=== PATIENT | female | born 1980 | race Caucasian/White ===

== ENCOUNTER 2018-03-08 18:55 | Emergency (ER) | payer OTHER ==
[~2018-03-08] VITALS: Ht 170.2 cm; Wt 70.3 kg
[2018-03-08 19:25] LABS: ABSOLUTE BASOPHIL COUNT 0 /CUMM (0.0-0.2); ABSOLUTE EOSINOPHIL COUNT 0.3 /CUMM (0.0-0.7); ABSOLUTE GRANULOCYTE CT 7.9 /CUMM (1.4-6.5); ABSOLUTE LYMPH COUNT 2.3 /CUMM (1.2-3.4); ABSOLUTE MONOCYTE COUNT 0.6 /CUMM (0.10-0.60); BASOPHIL % 0.4 % (0.0-2.0); EOSINOPHIL % 2.4 % (0-5); GRANULOCYTE % 70.7 % (42.2-75.2); HEMATOCRIT 46.6 % (37-47); MEAN CORPUSCULAR HGB 30.5 PG (27.0-31.0); MEAN CORPUSCULAR HGB CONC 33.6 G/DL (33.0-37.0); MEAN CORPUSCULAR VOLUME 90.8 FL (81.0-99.0); MEAN PLATELET VOLUME 10.2 FL (7.4-10.4); PLATELET COUNT 221 /CUMM (130-400); RBC DISTRIBUTION WIDTH 13.6 % (11.5-14.5); RED BLOOD CELL CT 5.14 /CUMM (4.20-5.40); WHITE BLOOD CELL COUNT 11.1 /CUMM (4.8-10.8)
--- NOTE | 2018-03-08 20:42 | ED HEADACHE COMPLAINT ---
History of Present Illness General Chief Complaint: General Adult Stated Complaint: HIGH BLOOD PRESSURE Source: patient, old records Exam Limitations: no limitations Vital Signs & Intake/Output Vital Signs & Intake/Output Vital Signs Date Time Temp Pulse Resp B/P B/P Pulse O2 O2 Flow FiO2 Mean Ox Delivery Rate 03/08 2146 84 149/82 03/08 2047 85 150/86 03/08 2047 85 150/86 03/08 1858 97.4 118 18 195/93 96 Allergies Coded Allergies: MDX - Adhesive (ADHESIVE) (RASH 02/09/13) Reconcile Medications Labetalol HCl 100 MG TABLET 1 TAB PO BID HTN Triage Note: 37 Y/O FEMALE C/O HYPERTENSION. STATES SHE RECENTLY HAD HER CONTROL INCREASED DUE TO IRREGULAR PERIODS AND HAS BEEN HAVING INCREASED BLOOD PRESSURES SINCE. CHECKED B/P AT HOME TODAY AND WAS FOUND TO BE 200'S SYSTOLIC (REPORTED BY PT). C/O INTERMITTENT HEADACHES. DENIES C/P. DENIES OTHER COMPLAINTS. IN TRIAGE TAKEN FOR EKG. Triage Nurses Notes Reviewed? yes Onset: Afternoon Duration: hour(s):, constant, continues in ED Timing: recent history Quality/Severity: moderate, throbbing No Modifying Factors: none LMP (ages 10-50): unknown : No Patient currently breastfeeds: No HPI: Several hours prior to admission patient complains of headache she took her blood pressure and it was noted to be elevated. She reports having issues with elevated blood pressure since of of her second child and use of increasing doses of oral contraceptives for irregular menstrual bleeding. She denies fever chills nausea vomiting diarrhea abdominal pain chest pain shortness of breath dysuria rash bleeding change in motor sensory function change in bowel bladder habit. Past History Travel History Traveled to [place] past 21 day No Medical History Any Pertinent Medical History? see below for history Neurological: NONE EENT: NONE Cardiovascular: hypertension (after ) Respiratory: NONE Gastrointestinal: NONE Hepatic: NONE Renal: NONE Musculoskeletal: NONE Psychiatric: NONE Endocrine: NONE Blood Disorders: NONE Cancer(s): NONE HIGHWAY MAINTAINER/Reproductive: NONE Tetanus Vaccine: 02/11/13 Surgical History Surgical History: non-contributory Psychosocial History What is your primary language Japanese Tobacco Use: Never used Family History Hx Contributory? No Review of Systems Review of Systems Constitutional: Reports: no symptoms. Eyes: Reports: no symptoms. Ears, Nose, Throat, Mouth: Reports: no symptoms. Respiratory: Reports: no symptoms. Cardiovascular: Reports: no symptoms. Gastrointestinal/Abdominal: Reports: no symptoms. Genitourinary: Reports: no symptoms. Musculoskeletal: Reports: no symptoms. Skin: Reports: no symptoms. Neurological/Psychological: Reports: see HPI, headache. Hematologic/Endocrine: Reports: no symptoms. Endocrine: Reports: no symptoms. Immunologic/Allergic: Reports: no symptoms. All Other Systems: Reviewed and Negative Physical Exam Physical Exam General Appearance: well developed/nourished, alert, awake, anxious, mild distress Head: atraumatic, normal appearance Eyes: Bilateral: normal appearance, PERRL, EOMI. Ears, Nose, Throat: normal pharynx, normal ENT inspection, hearing grossly normal Neck: normal inspection, supple, full range of motion, trachea midline, no midline tenderness Respiratory: normal breath sounds, chest non-tender, no respiratory distress, quiet respiration, lungs clear Cardiovascular: regular rate/rhythm, normal peripheral pulses, norml femoral pulses equa Gastrointestinal: normal bowel sounds, soft, non-tender, no organomegaly Back: normal inspection, normal range of motion, no vertebral tenderness Extremities: normal inspection, normal capillary refill, normal range of motion, no edema Psychiatric: awake, alert, oriented x 3 Cranial Nerves: normal hearing, normal speech, PERRL Coordination/Gait: normal finger to nose, normal gait Motor/Sensory: no motor/sensory deficits Reflexes: 2+: bicep (R), bicep (L). Skin: intact, normal color, warm/dry Lymphatic: no anterior cervical marga Core Measures Sepsis Present: No Sepsis Focused Exam Completed? No Progress Differential Diagnosis: cluster MADRIGAL, intracranial Hem., subarach. Hem., tension MADRIGAL Plan of Care: Orders Procedure Date/time Status Add-on Test (ER Only) 03/08 2006 Active TSH REFLEX 03/08 1906 Complete MAGNESIUM 03/08 1906 Complete HUMAN BETA HCG SCREEN 03/08 1906 Complete URINALYSIS 03/08 1901 Complete TROPONIN LEVEL 03/08 1901 Complete COMPREHENSIVE METABOLIC PANEL 03/08 1901 Complete CBC WITHOUT DIFFERENTIAL 03/08 1901 Complete EKG 03/08 1900 Active Current Medications Sig/Patrice Start time Last Medication Dose Stop Time Status Admin Labetalol HCl 100 MG ONCE ONE 03/08 2200 UNVr (Trandate) 03/08 2201 Laboratory Tests 03/08/18 1940: Urine Color Cancelled, Urine Clarity Cancelled, Urine pH Cancelled, Ur Specific [place] Cancelled, Urine Protein Cancelled, Urine Ketones Cancelled, Urine Nitrite Cancelled, Urine Bilirubin Cancelled, Urine Urobilinogen Cancelled, Ur Leukocyte Esterase Cancelled, Ur Microscopic Cancelled, Urine Hemoglobin Cancelled, Urine Glucose Cancelled 03/08/181939: Urinalysis LIGHT H, Urine Color YEL, Urine Clarity HAZY H, Urine pH 6.5, Ur Specific [place] 1.015, Urine Protein TRACE H, Urine Ketones NEG, Urine Nitrite NEG, Urine Bilirubin NEG, Urine Urobilinogen 0.2, Ur Leukocyte Esterase NEG, Ur Microscopic SEDIMENT EXAMINED, Urine RBC RARE, Ur Epithelial Cells MOD H, Urine Hemoglobin TRACE-INTACT, Urine Glucose NEG 03/08/181905: Anion Gap 16, Estimated GFR > 60, BUN/Creatinine Ratio 24.3, Glucose 98, Calcium 9.5, Magnesium 1.9, Total Bilirubin 0.7, AST 21, ALT 20, Alkaline Phosphatase 66 , Troponin I < 0.01, Total Protein 7.8, Albumin 5.0, Globulin 2.8, Albumin/ Globulin Ratio 1.8, TSH &T3 &Free T4 Intrp 3.710, Total Beta HCG NEGATIVE, CBC w Diff NO MAN DIFF REQ, RBC 5.14, MCV 90.8, MCH 30.5, MCHC 33.6, RDW 13.6, MPV 10.2, Gran % 70.7, Lymphocytes % 20.7, Monocytes % 5.8, Eosinophils % 2.4, Basophils % 0.4, Absolute Granulocytes 7.9 H, Absolute Lymphocytes 2.3, Absolute Monocytes 0.6, Absolute Eosinophils 0.3, Absolute Basophils 0 Diagnostic Imaging: Viewed by Me: CT Scan. Discussed w/RAD: CT Scan. Radiology Impression: 1. There are no acute bleeds or territorial infarcts. No masses are demonstrated. 2. The visualized mastoid air cells and paranasal sinuses are well-aerated. Initial ED EKG: normal axis, normal intervals, normal p-waves, normal QRS complex, rhythm (sinus tachycardia), no ST T wave changes Rhythm Strip: normal sinus rhythm Departure Departure Time of Disposition: 2147 Disposition: HOME OR SELF CARE Condition: Stable Clinical Impression Primary Impression: Hypertension Referrals: Mel Clemons DO (PCP/Family) Departure Forms: Customer Survey General Discharge Information Prescriptions: Current Visit Scripts Labetalol HCl 1 TAB PO BID #60 TAB Critical Care Note Critical Care Note Critical Care Time: 30-74 min (35)
--- NOTE | 2018-03-08 21:21 | CT SCAN REPORT ---
EXAMINATION: CT HEAD WITHOUT CONTRAST CLINICAL INFORMATION: Hypertension and headache. Assess for intracranial hemorrhage. COMPARISON: None. TECHNIQUE: Contiguous axial imaging was performed from the skull base to vertex without intravenous administration of contrast. DLP: 603.85 mGy-cm FINDINGS: There is no evidence of acute intracranial hemorrhage or territorial infarction. No abnormal mass effect or midline shift is seen. Farley to white matter differentiation is well preserved. No extra-axial fluid collections are identified. The ventricles are normal in size. There is no abnormal attenuation within the brain parenchyma. The osseous structures and soft tissues are normal. The visualized mastoid air cells and paranasal sinuses are well aerated. IMPRESSION: 1. There are no acute bleeds or territorial infarcts. No masses are demonstrated. 2. The visualized mastoid air cells and paranasal sinuses are well-aerated.
[2018-03-08 21:46] VITALS: BP 149/82
[2018-03-08] MEDS ORDERED: LABETALOL HCL100 M1 PO (21:48)
[2018-03-08] MEDS ORDERED: IBUPROFEN600 M1 PO (21:58)
== END 2018-03-08 22:12 ==
LOC: ERH 18:55
PROVIDERS: Physician Assistant
DX: I10 Essential (primary) hypertension (principal)
CPT/HCPCS: 81001; 93005; 93010; 96374; 99291